=== PATIENT | female | born 1955 | race Caucasian/White ===

== ENCOUNTER 2019-06-14 09:51 | Day surgery (SDC) | payer BC, OTHER ==
[~2019-06-14 09:51] MED LIST: Buffered Lidocaine 1% SYRIN* 1 ML/SYRINGE INTRADERM ONE; Famotidine IV* 10 MG/ML 2 ML (20 mg) IV ONE; Lactated Ringers 1000 ML Bag* 1,000 ML IV SCH
[2019-06-14] MEDS ORDERED: ceFAZolin 2 GM PREMIX in ORs 2 GM/50 ML BAG ONE (10:12)
[2019-06-14] MEDS ORDERED: Famotidine IV* 10 MG/ML 2 ML (20 mg) ONE (10:12)
[2019-06-14] MEDS ORDERED: Lidocaine 2% PF * 5 ML VIAL ONE (11:34)
[2019-06-14] MEDS ORDERED: fentaNYL* 50 MCG/ML 2 ML VIAL (100 MCG VIAL) ONE (11:34)
[2019-06-14] MEDS ORDERED: Propofol* 10 MG/ML 20 ML BTL ONE ×2 (11:34→12:43)
[2019-06-14] MEDS ORDERED: Dexamethasone IV* 4 MG/ML 1 ML (4 MG) ONE (11:34)
[2019-06-14] MEDS ORDERED: Ketorolac INJ* 30 MG/ML 1 ML VIAL ONE (11:34)
[2019-06-14] MEDS ORDERED: Ondansetron INJ* 2 MG/ML VIAL ONE (11:34)
[2019-06-14] MEDS ORDERED: KETAMINE HCL* 50 MG/ML 10 ML VIAL ONE (11:35)
[2019-06-14] MEDS ORDERED: Midazolam* 1 MG/ML 10 ML VIAL (10 MG) ONE (11:35)
[2019-06-14] MEDS ORDERED: Bupivacaine 0.25% SDV PF* 10 ML VIAL INJ ONE (12:12)
[2019-06-14] MEDS ORDERED: Naloxone* 0.4 MG/ML 1 ML VIAL IV PRN (12:30)
[2019-06-14] MEDS ORDERED: oxyCODONE/Acetamin 5/325 MG* TAB PO PRN (12:30)
[2019-06-14] MEDS ORDERED: Ondansetron INJ* 2 MG/ML VIAL IV PRN (12:30)
[2019-06-14] MEDS ORDERED: fentaNYL* 50 MCG/ML 2 ML VIAL (100 MCG VIAL) IV PRN (12:30)
[2019-06-14] MEDS ORDERED: Bacitracin OINTMENT* 0.5% 0.5 oz TUBE ONE (12:33)
[2019-06-14 14:30] VITALS: BP 121/69
--- NOTE | 2019-06-15 01:45 | OP ---
CC: [facility]; primary care doctor * DATE OF OPERATION: 06/14/19 - SDS DATE OF : 57 SURGEON: Dr. Yu. [place] EXPEDITION GUIDE: NOELLE Mcknight ANESTHESIOLOGIST: Dr. Florence. ANESTHESIA: Local MAC. PRE-OP DIAGNOSIS: Umbilical hernia. POST-OP DIAGNOSIS: Umbilical hernia. OPERATIVE PROCEDURE: Open umbilical hernia repair with mesh. ESTIMATED BLOOD LOSS: Minimal blood loss. SPECIMEN: None. DRAINS: None. DESCRIPTION OF PROCEDURE: The patient was identified in the preoperative area, marked appropriately. Consent was signed. She was then taken to the operating room and placed on the operating table in the supine position. Preoperative antibiotics were given. Sequential devices were placed on bilateral lower extremities. General anesthesia was induced. The patient's abdomen was prepped and draped in a standard surgical fashion. A time-out was performed. I injected inferiorly to the umbilicus and around the area of the umbilicus. An inferior incision was made. This was deepened down to the anterior fascia inferiorly and we freed up the umbilical skin sharply with a scalpel until we could see the entire defect. The fascia was cleared up circumferentially and the contents of the hernia appeared to be just preperitoneal fat. These were reduced. The defect itself is approximately 1.5 cm and I made the incision to do a mesh repair. Next, bluntly, a flap was made under the abdominal wall musculature and we then placed a 4.3 Ventralex mesh into the hernia defect. I allowed it unfurl and sutured it superiorly and inferiorly in the appropriate fashion. The tails of the mesh were then cut. The wound irrigated. We reapproximated some of the looser abdominal wall tissue to fully obscure the mesh and then tacked the umbilical skin with a 2-0 Vicryl suture and closed the incision in a standard fashion with 3-0 Vicryl followed by 4-0 Monocryl subcuticular sutures. Steri- Strips and sterile dressing were applied. The patient tolerated the procedure well. [id number] #: [id number] [facility]
== END 2019-06-14 14:34 | disposition home or self-care (01) ==
LOC: OR 09:51
PROVIDERS: ATTEND Surgery
DX: K42.9 Umbilical hernia without obstruction or gangrene (principal)
CPT/HCPCS: A9270-GY; C1781; J0690; J1100; J1885; J2250; J2405; J2704; J3010; J3490